=== PATIENT | female | born 1950 | race Caucasian/White ===

== ENCOUNTER → 2017-09-04 12:07 | Outpatient (CLI) | payer OTHER, SELFPAY ==
--- NOTE | 2017-09-04 12:14 | RAD_ITS ---
STUDY: X-RAY - RIGHT ANKLE REASON FOR EXAM: Female, 66 years old. Right ankle pain following a recent fall. TECHNIQUE: 3 view(s) of the ankle. COMPARISON: None. FINDINGS: Normal visualized distal tibia and fibula. Normal medial and lateral malleoli. Normal tibiotalar articulation and ankle mortise. Normal visualized talus and calcaneus. The visualized subtalar, talonavicular, calcaneocuboid and tarsal articulations are normal. The soft tissue structures are unremarkable. RAD/Ankle min 3 Views IMPRESSION: Normal x-ray examination of the ankle. Electronically Signed: Jg Godfrey MD at 15:35 EDT Tel [phone], Service support ,
== END ==
PROVIDERS: Family Provider Family Medicine; PCP Family Medicine; Visit Provider Family Medicine
DX: S93.491A Sprain of other ligament of right ankle, initial encounter (principal)
CPT/HCPCS: 73610

== ENCOUNTER → 2024-12-04 | Outpatient (CLI) | payer OTHER, SELFPAY ==
--- NOTE | 2024-12-04 09:19 | RAD_ITS ---
EXAM: XR Lumbosacral Spine, 2 or 3 Views CLINICAL INDICATION: BACK PAIN TECHNIQUE: Frontal and lateral views of the lumbar spine and sacrum. COMPARISON: No relevant prior studies available. FINDINGS: VERTEBRAE: Anterior spondylolisthesis of L4 over L5 by 8 mm. Multilevel endplate degenerative changes and disc degeneration of L1-2 S1, most prominent at L4-5. Facet arthropathy of L 3 to S1. No acute fracture. SACRUM/COCCYX: Unremarkable as visualized. No acute fracture. DISC SPACES: No acute findings. No significant narrowing. SOFT TISSUES: Unremarkable. VASCULATURE: Scattered calcified atherosclerotic disease of aorta. RAD/Lumbar Spine 2 or 3 Views IMPRESSION: 1. Anterior spondylolisthesis of L4 over L5 by 8 mm. 2. Degenerative changes as above. Reading [facility]
== END | disposition home or self-care (01) ==
LOC: MTRAD 09:15
PROVIDERS: PCP Family Medicine
DX: S39.012A Strain of muscle, fascia and tendon of lower back, initial encounter (principal); X58.XXXA Exposure to other specified factors, initial encounter
CPT/HCPCS: 72100

== ENCOUNTER 2025-01-05 15:30 | Outpatient (RCR) | payer OTHER, SELFPAY ==
--- NOTE | 2024-12-10 11:21 | HP.PTEVAL_ITS ---
Patient's Visit Information Visit Information Visit Information: JESS GRANGER is a 74 year old F referred to Physical Therapy by Dr. Yeison Mari MD with a diagnosis of Lumbar DDD. Date of Evaluation: 12/10/24 Physical Therapist: Yeison Hernandez Visit Plan Frequency: 1-2x /Week Duration: 6 Weeks Plan: Continue to work on improving core and back strength. Use manual therapy and modalities as needed for pain control. Subjective Subjective: Pt. is a 74 y.o. female who has been having left sided lower back pain which has been going on for a couple of weeks after she notes that she was weed eating for awhile and noticed increased pain after this. Pt. PLOF includes no history of back pain in the past. She had x-ray of her lumbar spine which showed degenerative disc disease. Pt. denies any radicular symptoms. She denies any change in her bowel or bladder function. Pt. has difficulty with sitting for long periods of time, standing for long periods of time, occasionally sleeping, lifting things, yard work, and work activity. 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 Her goal with physical therapy is to get rid of her pain and build some muscle. Pt. rates left sided lower back pain at 6/10 currently, at worst 10/10, at best 2/10 and describes the pain as throbbing and numb at times. She has lidocaine patches and also has prescription for muscle relaxer. Her PMH includes hysterectomy and smoker about 1-1.5 packs a day for many years. Pt. lives with her daughter and two grandkids. Her hobbies include working in her yard and cleaning. Objective Objective: Posture- Good posture in standing Palpation- Mild tenderness over left side of lower back Lumbar AROM- WNL for all motions and no pain Pelvic alignment- Pelvis and leg length normal in supine Hip PROM- WNL bilaterally Core strength- 4/5 Left LE strength grossly 5/5 for all motions Right LE strength grossly 5/5 for all motions Gait- Pt. ambulates with no gait deviations. Balance/Special Test Scores Oswestry Low Back Score: 25 Goals Goal 1:: Pt. will be independent with home exercise program. Goal Time Frame: 4-6 Weeks Goal 2:: Pt. will be able to sit for at least 1 hour with no pain. Goal Time Frame: 4-6 Weeks Goal 3:: Pt. will be able to stand/walk for at least 30 minutes with pain < 3/10. Goal Time Frame: 4-6 Weeks Goal 4:: Pt. will be able to sleep a full night with no pain. Goal Time Frame: 4-6 Weeks Goal 5:: Pt. will rate back pain at worst at 3/10 with ADL's and work activity. Goal Time Frame: 4-6 Weeks Goal 6:: Pt. will improve Oswestry Disability < 40% disability in order to improve ADL's. Goal Time Frame: 4-6 Weeks Rehabilitation Potential Physical Therapy Diagnosis: Decreased core/back strength and pain. Pt. presents at this time with acute low back pain without radiculopathy. Rehabilitation Potential: Good Anticipated Interventions Patient/Client Instruction: Educate patient on: Condition, Plan of Care and Benefits of Fitness Program For the Purpose of:: To decrease pain, To improve ability to perform ADL's, To improve performance and independence with ADL's, To assume or resume ADL's and To improve tolerance to ADL's Therapeutic Exercise to Include: Strength training, Body mechanics, Postural training, Flexibilty training, Active ROM, Dynamic Lumbar Stabilization and Robby Exercises Comment: Continue with core and back strengthening. For the Purpose of:: To decrease pain, To improve ability to perform ADL's, To improve performance and independence with ADL's, To increase flexibility/ROM, To assume or resume ADL's and To improve tolerance to ADL's Functional Training to Include: ADL Training and Functional work training For the Purpose of:: To decrease pain, To improve ability to perform ADL's, To improve performance and independence with ADL's, To assume or resume ADL's and To improve tolerance to ADL's Manual Therapy Techniques to Include: Mobilization and Soft tissue mobilization For the Purpose of:: To decrease pain, To decrease swelling/inflammation, To improve ability to perform ADL's, To improve performance and independence with ADL's, To assume or resume ADL's and To improve tolerance to ADL's TENS: Yes IF ES: Yes Cryotherapy (ice pack, ice massage): Yes Thermo therapy (hot pack): Yes For the Purpose of:: To decrease pain, To decrease swelling/inflammation, To improve ability to perform ADL's, To improve performance and independence with ADL's, To assume or resume ADL's and To improve tolerance to ADL's Text: Thank you for the opportunity to evaluate your patient. For Medicare and Medicare HMO plans, please review the plan of care and approve it. It will need to be FAXED BACK to us at [phone] for Medicare purposes. For Medicare only, by signing this I certify the plan of care. Please let me know if there are questions or concerns regarding this plan of care. Physician Signature: Date:
--- NOTE | 2025-01-05 16:11 | HP.PTDCSUM ---
Discharge Summary D/C summary: It has been my pleasure to treat JESS GRANGER referred by Dr. Yeison Mari MD, with the diagnosis of Lumbar DDD for a total of 6 visit(s). Discharge Date: 01/05/25 Please see the following information for a summary of their discharge status. Subjective Subjective: Doing a lot better b/c I am exercises. Pain is gone. Got exercises to do at home. No f/u with doctor. Activities at home pretty normal. Pain Left Back: Pain Intensity (Out of 10): 0 Overall Improvement % Improvement: 100 Objective Objective/Function: squatting and stooping without pain. L/S AROM without pain today. walking well adn heel raises easily. Goals Goal 1:: Pt. will be independent with home exercise program. Goal Progress: Goal Met Goal 2:: Pt. will be able to sit for at least 1 hour with no pain. Goal Progress: Goal Met Goal 3:: Pt. will be able to stand/walk for at least 30 minutes with pain < 3/10. Goal Progress: Goal Met Goal 4:: Pt. will be able to sleep a full night with no pain. Goal Progress: no, but not a back issue Goal 5:: Pt. will rate back pain at worst at 3/10 with ADL's and work activity. Goal Progress: Goal Met Goal 6:: Pt. will improve Oswestry Disability < 40% disability in order to improve ADL's. Goal Progress: Goal Met Plan Plan: d/c to HEP D/C Information d/c sentence: If there are questions or concerns regarding this patient's physical therapy, please feel free to call me at [phone]. Thank you for the referral of this patient. Sincerely, Franco Mcdowell, DPT, OCS, CSCS Balance/Gait/Functional tests Balance/Special Test Scores Oswestry Low Back Score: 0 Improvement % Improvement: 100
== END 2025-01-05 19:00 | disposition home or self-care (01) ==
LOC: PT 15:30
PROVIDERS: PCP Family Medicine; Visit Provider Anesthesiology
DX: M54.16 Radiculopathy, lumbar region (principal)
CPT/HCPCS: 97110; 97161; 97530